=== PATIENT | female | born 1965 ===

== ENCOUNTER 2018-07-19 07:49 | Outpatient (CLI) | payer OTHER | END 2018-07-19 07:50 | disposition home or self-care (01) | LOC: C.LAB 07:49 | DX: M54.9 Dorsalgia, unspecified (principal); Z13.9 Encounter for screening, unspecified; Z12.11 Encounter for screening for malignant neoplasm of colon ==

== ENCOUNTER 2018-07-21 12:14 | Outpatient (CLI) | payer OTHER | END 2018-07-21 12:15 | disposition home or self-care (01) | LOC: C.LAB 12:14 | DX: Z13.9 Encounter for screening, unspecified (principal) ==

== ENCOUNTER 2018-08-07 08:14 | Emergency (ER) | payer OTHER ==
[2018-08-07 08:18] VITALS: RESP 18; O2SAT 100
[2018-08-07] MEDS ORDERED: Sodium Chloride 0.9% 1,000 ML IV ONE (08:29)
--- NOTE | 2018-08-07 08:42 | C.PDOC ---
History Of Present Illness 53 y/o female is brought in by ambulance complaining of dizziness for the past few days, associated with vomiting. Patient denies any fever, chills, headache, abdominal pain, or other complaints. Time Seen by Provider: 08/07/18 08:15 Chief Complaint (Nursing): Dizziness/Lightheaded History Per: Patient History/Exam Limitations: no limitations Onset/Duration Of Symptoms: Days Current Symptoms Are (Timing): Still Present Past Medical History Reviewed: Historical Data, Nursing Documentation, Vital Signs Vital Signs: Last Vital Signs Temp 97.6 F 08/07/18 08:17 Pulse 69 08/07/18 08:17 Resp 18 08/07/18 08:17 BP 117/79 08/07/18 08:17 Pulse Ox 100 08/07/18 08:17 - Medical History PMH: No Chronic Diseases Family History: States: No Known Family Hx - Social History Hx Alcohol Use: No Hx Substance Use: No - Immunization History Hx Tetanus Toxoid Vaccination: No Hx Influenza Vaccination: No Hx Pneumococcal Vaccination: No Review Of Systems Except As Marked, All Systems Reviewed And Found Negative. Constitutional: Negative for: Fever, Chills Cardiovascular: Negative for: Chest Pain Respiratory: Negative for: Shortness of Breath Gastrointestinal: Positive for: Vomiting. Negative for: Abdominal Pain Neurological: Positive for: Dizziness. Negative for: Headache Physical Exam - Physical Exam Appears: Non-toxic, No Acute Distress Skin: Warm, Dry Head: Atraumatic, Normacephalic Eye(s): bilateral: Normal Inspection Oral Mucosa: Moist Neck: Supple Cardiovascular: Rhythm Regular, No Murmur Respiratory: Normal Breath Sounds, No Rales, No Rhonchi, No Wheezing Gastrointestinal/Abdominal: Soft, Tenderness (epigastric tenderness) Extremity: Normal ROM Extremity: Bilateral: Atraumatic, Normal ROM Neurological/Psych: Oriented x3, Normal Speech Gait: Steady ED Course And Treatment - Laboratory Results Result Diagrams: 08/07/18 08:37 08/07/18 08:37 Lab Interpretation: No Acute Changes ECG: Interpreted By Me ECG Rhythm: Nonspecific Changes Rate From EC O2 Sat by Pulse Oximetry: 100 (RA) Pulse Ox Interpretation: Normal Progress Note: Treated with IVF NSS and reglan. On re-evaluation feeling better, ambulating with steady gait Reassessment Condition: Improved Medical Decision Making Medical Decision Making: Plan: --EKG --Labs --UA --Pepcid 20 mg IVP --Reglan 10 mg IV --IV fluids 1L Disposition Counseled Patient/Family Regarding: Studies Performed, Diagnosis, Need For Followup - Disposition Referrals: [facility] [Outside] [facility] [Outside] Disposition: HOME/ ROUTINE Disposition Time: 11:00 Condition: IMPROVED Additional Instructions: Return to ED if any increase symptom Follow up at clinic Instructions: Nausea and Vomiting, Adult (DC) Forms: Yammer (Sri Lankan) Print Language: BELIZEAN - POA Present On Arrival: None - Clinical Impression Clinical Impression: Nausea & vomiting, Dizziness - PA / STATION COOK / Resident Statement MD/DO has reviewed & agrees with the documentation as recorded. - Scribe Statement The provider has reviewed the documentation as recorded by the Scribanat Rocha All medical record entries made by the Ericaibanat were at my direction and personally dictated by me. I have reviewed the chart and agree that the record accurately reflects my personal performance of the history, physical exam, medical decision making, and the department course for this patient. I have also personally directed, reviewed, and agree with the discharge instructions and disposition.
[2018-08-07 08:46] LABS: BASO # 0.1 K/uL (0.0-0.2); BASO % 1.1 % (0.0-2.0); EOS # 0.1 K/uL (0.0-0.7); EOS % 1.7 % (0.0-4.0); HEMOGLOBIN 13.6 g/dL (11.0-16.0); LYMPH # 1.6 K/uL (1.0-4.3); LYMPH % 32.2 % (20.0-40.0); MEAN CELL VOLUME 88.9 fL (81.0-99.0); MEAN CORPUSCULAR HEMOGLOBIN 30.8 pg (27.0-31.0); MEAN CORPUSCULAR HGB CONC 34.7 g/dL (33.0-37.0); MEAN PLATELET VOLUME 8.9 fL (7.2-11.7); MONO # 0.3 K/uL (0.0-0.8); MONO % 6.6 % (0.0-10.0); NEUT # 2.9 K/uL (1.8-7.0); NEUT % 58.4 % (50.0-75.0); NRBC % 0.1 % (0.0-2.0); RBC 4.42 Mil/uL (3.80-5.20); RED CELL DISTRIBUTION WIDTH 12.3 % (11.5-14.5)
[2018-08-07 08:58] LABS: ALB/GLOB RATIO 1.3 (1.0-2.1); ALBUMIN 4.3 g/dL (3.5-5.0); ALT/SGPT 29 U/L (9-52); AST/SGOT 33 U/L (14-36); BLOOD UREA NITROGEN 19 mg/dL (7-17); CALCIUM 9.4 mg/dl (8.6-10.4); GFR NON-AFRICAN AMERICAN > 60; LIPASE 83 U/L (23-300)
[2018-08-07 10:03] LABS: HCG,QUALITATIVE URINE NEGATIVE (NEGATIVE)
[2018-08-07 10:05] LABS: SQUAMOUS EPITHIAL 2 /hpf (0-5); URINE BACTERIA RARE (<OCC); URINE BILIRUBIN NEGATIVE (NEGATIVE); URINE BLOOD NEGATIVE (NEGATIVE); URINE CLARITY Clear (Clear); URINE COLOR Straw (YELLOW); URINE GLUCOSE (UA) NORMAL (Normal); URINE LEUKOCYTE ESTERASE NEG Leu/uL (Negative); URINE PROTEIN NEGATIVE (NEGATIVE); URINE UROBILINOGEN NORMAL mg/dL (0.2-1.0)
[2018-08-07 11:14] VITALS: BP 109/72; PULSE 63; TEMP 98.7
--- NOTE | 2018-08-09 10:42 | CARD ---
APPROVED REPORT Date of service: 08/07/2018 EKG Measurement Heart [id number] <Conclusion> Normal sinus rhythm Nonspecific ST and T wave abnormality Borderline EKG
== END 2018-08-07 11:30 | disposition home or self-care (01) ==
LOC: C.ER 08:14
DX: R42 Dizziness and giddiness (principal); R11.2 Nausea with vomiting, unspecified
CPT/HCPCS: 80053; 81001; 83690; 84484; 84703; 85025; 93005; 96361; 96374; 96375; 99285; J2765; J7030